=== PATIENT | male | born 1950 | race Caucasian/White ===

== ENCOUNTER 2019-07-10 09:14 | Observation (INO) | payer MEDICARE ==
[~2019-07-10] VITALS: Ht 175.3 cm; Wt 65.8 kg
[~2019-07-10 09:14] MED LIST: BP PILL; ETODOLAC400 MG PO; FLUID PILL; GABAPENTIN300 MG PO; LEVOTHYROXINE50 MCG PO; LISINOPRIL10 MG PO; MISOPROSTOL200 MCG PO; MONTELUKAST SOD10 MG PO; OMEPRAZOLE20 M1 PO; POTASSIUM99 M1 PO; PROAIR HFA INH8.5 GM INH; TRAMADOL
[2019-07-10] MEDS ORDERED: ALBUTEROL/IPRATROPIUM 3 ML NEB NEB ONE ×3 (09:45→13:30)
[2019-07-10 09:59] LABS: BASOPHILS % 0.4 % (0.0-1.0); EOSINOPHILS # (AUTO) 0.1 (0.0-0.4); EOSINOPHILS % 1.7 % (0.0-6.0); HEMATOCRIT 44.9 % (38.2-49.6); LYMPHOCYTES # (AUTO) 1.1 (1.0-3.2); LYMPHOCYTES % 15.2 % (18.0-39.1); MEAN CORPUSCULAR HEMOGLOBIN 33.1 pg (28-32); MEAN CORPUSCULAR HGB CONC 35.6 g/dL (31-35); MONOCYTES # (AUTO) 0.7 (0.2-0.8); MONOCYTES % 9.6 % (4.4-11.3); NEUTROPHILS # (AUTO) 5.2 (2.1-6.9); NEUTROPHILS % 72.8 % (38.7-80.0); PLATELET COUNT 200 x10e3/uL (140-360); RED BLOOD COUNT 4.83 x10e6/uL (4.3-5.7); RED CELL DISTRIBUTION WIDTH 12.5 % (11.7-14.4)
[2019-07-10] MEDS ORDERED: METHYLPREDNISOLONE SOD SUCC 125 MG/2ML VIAL IV NR (10:00)
[2019-07-10] MEDS ORDERED: CEFTRIAXONE SOD 1 GM/NS 50 ML 50 ML IV NR (10:00)
[2019-07-10] MEDS ORDERED: AZITHROMYCIN 500MG/NS 250 ML 250 ML IV ONE (10:00)
[2019-07-10] MEDS ORDERED: ASPIRIN 81 MG CHEW TAB PO ONE (10:00)
[2019-07-10] MEDS ORDERED: METHYLPREDNISOLONE SOD SUCC 125 MG/2ML VIAL ONE (10:08)
[2019-07-10 10:09] LABS: PROTHROMBIN TIME 13.8 seconds (11.9-14.5)
[2019-07-10 10:15] LABS: ANION GAP 18.6 mmol/L (8-16); BLOOD UREA NITROGEN 5 mg/dL (7-26); BUN/CREATININE RATIO 6 (6-25); CALCIUM 9.4 mg/dL (8.4-10.2); CARBON DIOXIDE 20 mmol/L (22-29); CHLORIDE 92 mmol/L (98-107); CREATINE KINASE 328 IU/L (30-200); CREATININE, SERUM 0.83 mg/dL (0.72-1.25); EST GLOMERULAR FILTRATION RATE > 60 ML/MIN (60-); GLUCOSE 109 mg/dL (74-118); POTASSIUM 4.6 mmol/L (3.5-5.1); SODIUM 126 mmol/L (136-145)
[2019-07-10 10:20] LABS: PARTIAL THROMBOPLASTIN TIME 30.6 seconds (23.8-35.5)
--- NOTE | 2019-07-10 11:35 | Diagnostic Imaging Report ---
EXAMINATION: CHEST SINGLE (PORTABLE) INDICATION: copd COMPARISON: None FINDINGS: TUBES and LINES: None. LUNGS: Emphysematous changes of the lungs. Mild bronchial wall thickening. Minimal patchy bibasilar opacities. PLEURA: Mild pleural thickening versus trace bilateral pleural effusions. No evidence of pneumothorax. HEART AND MEDIASTINUM: The cardiomediastinal silhouette is unremarkable. BONES AND SOFT TISSUES: No acute osseous abnormality. Healed right posterior sixth rib fracture. UPPER ABDOMEN: No free air under the diaphragm. IMPRESSION: Emphysematous lungs with findings of chronic bronchitis. Minimal patchy bibasilar opacities, likely atelectasis, although infectious process is possible in the appropriate clinical setting. Mild pleural thickening versus trace bilateral pleural effusions. Signed by: Dr. Mary Lou Ramirez MD on 07/10/2019 11:32 AM
--- NOTE | 2019-07-10 11:46 | Emergency Department Note ---
History of Present Illnes History of Present Illness Chief Complaint: Respiratory History of Present Illness This is a 68 year old male shortness of breath worsening since last night. hx of COPd sats of 94%. 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 Any updates have been documented here. Past Medical History Recent Fever: No Clinical Suspicion of Infectio: No New/Unexplained Change in Ment: No Past Medical History: Hypertension, COPD Other Medical History: GERD Back problems Herniasx2 Other Surgery: BACK FUSION X2, LEFT WRIST SURGERY Social History Smoking Cessation: Current every day smoker Counseling Performed: Yes Alcohol Use: Social Any Illegal Drug Use: No TB Exposure/Symptoms: No Physically hurt or threatened: No Family History Family history of heart diseas: No Other Last Tetanus: UTD Any Pre-Existing Lines (PICC,: No Is patient up to date on immun: Yes Review of Systems Review of Systems Constitutional: no symptoms EENTM: no symptoms Cardiovascular: no symptoms Respiratory: dyspnea, dyspnea on exertion Gastrointestinal: no symptoms Genitourinary: no symptoms Musculoskeletal: no symptoms Neurological: no symptoms Psychological: no symptoms Endocrine: no symptoms Hematological/Lymphatic: no symptoms Review of other systems All other systems reviewed and negative. Physical Exam Related Data Allergies: Coded Allergies: No Known Allergies (Unverified , 06/30/15) Triage Vital Signs Vital Signs Date Time Temp Pulse Resp B/P (MAP) Pulse Ox O2 Delivery O2 Flow Rate FiO2 07/10/19 09:24 98.4 128 28 179/99 94 07/10/19 09:49 4.0 Vital signs reviewed: Yes Physical Exam CONSTITUTIONAL Constitutional: well-developed, well-nourished HENT HENT: normocephalic, atraumatic, oropharynx clear/moist, nose normal HENT L/R: left ext ear normal, right ext ear normal EYES Eyes: PERRL, conjunctivae normal NECK Neck: ROM normal PULMONARY Pulmonary: respiratory distress (mild, with tachypnea), other (decreased BS's t hroughout with mod diffuse insp/exp wheezes) CARDIOVASCULAR Cardiovascular: regular rhythm, tachycardia GASTROINTESTINAL Abdominal: soft, nontender, bowel sounds normal GENITOURINARY Genitourinary: exam deferred SKIN Skin: warm, dry MUSCULOSKELETAL Musculoskeletal: ROM normal NEUROLOGICAL Neurological: alert, oriented x 3, no gross motor or sensory deficits PSYCHOLOGICAL Psychological: mood/affect normal, judgement normal Results Laboratory Result Diagram: 07/10/1941 07/10/1941 Laboratory Laboratory Tests Test 07/10/19 09:41 07/10/19 09:36 White Blood Count 7.16 x10e3/uL (4.8-10.8) Red Blood Count 4.83 x10e6/uL (4.3-5.7) Hemoglobin 16.0 g/dL (14.0-18.0) Hematocrit 44.9 % (38.2-49.6) Mean Corpuscular Volume 93.0 fL (81-99) Mean Corpuscular Hemoglobin 33.1 pg (28-32) Mean Corpuscular Hemoglobin Concent 35.6 g/dL (31-35) Red Cell Distribution Width 12.5 % (11.7-14.4) Platelet Count 200 x10e3/uL (140-360) Neutrophils (%) (Auto) 72.8 % (38.7-80.0) Lymphocytes (%) (Auto) 15.2 % (18.0-39.1) Monocytes (%) (Auto) 9.6 % (4.4-11.3) Eosinophils (%) (Auto) 1.7 % (0.0-6.0) Basophils (%) (Auto) 0.4 % (0.0-1.0) Neutrophils # (Auto) 5.2 (2.1-6.9) Lymphocytes # (Auto) 1.1 (1.0-3.2) Monocytes # (Auto) 0.7 (0.2-0.8) Eosinophils # (Auto) 0.1 (0.0-0.4) Basophils # (Auto) 0.0 (0.0-0.1) Absolute Immature Granulocyte (auto 0.02 x10e3/uL (0-0.1) Prothrombin Time 13.8 seconds (11.9-14.5) Prothromb Time International Ratio 1.00 Activated Partial Thromboplast Time 30.6 seconds (23.8-35.5) Sodium Level 126 mmol/L (136-145) Potassium Level 4.6 mmol/L (3.5-5.1) Chloride Level 92 mmol/L (98-107) Carbon Dioxide Level 20 mmol/L (22-29) Anion Gap 18.6 mmol/L (8-16) Blood Urea Nitrogen 5 mg/dL (7-26) Creatinine 0.83 mg/dL (0.72-1.25) Estimat Glomerular Filtration Rate > 60 ML/MIN (60-) BUN/Creatinine Ratio 6 (6-25) Glucose Level 109 mg/dL (74-118) Lactic Acid Level 1.5 mmol/L (0.5-2.0) Calcium Level 9.4 mg/dL (8.4-10.2) Creatine Kinase 328 IU/L (30-200) Creatine Kinase MB 21.20 ng/mL (0-5.0) Troponin I 0.022 ng/mL (0-0.300) B-Type Natriuretic Peptide 80.6 pg/mL (0-100) Lab results reviewed: Yes Imaging Imaging results reviewed: Yes Diagnostics Tests Diagnostic test(s) reviewed: Yes Procedures 12 Lead ECG 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 Assessment & Plan Reassessment Reassessment pt with h/o COPD presents SOB - check cbc, chem's, ecg, cardiac enzymes, cxr, blood cx's, lactate - r/o sepsis, pneumonia vs bronchitis, electrolyte abnl, STEMI/NSTEMI. Nebs, steroids, reassessment 1125- Pt improved, feels better, no resp distress currently. I discussed with him labs and need for admission. Spoke with Dr Yao for admission Assessment & Plan Final Impression: (1) CHRONIC OBSTRUCTIVE PULMONARY DISEASE W (ACUTE) EXACERBATION (2) ACUTE BRONCHITIS, UNSPECIFIED (3) HYPO-OSMOLALITY AND HYPONATREMIA Assessment & Plan admit Depart Disposition: ADMITTED Last Vital Signs Date Time Temp Pulse Resp B/P (MAP) Pulse Ox O2 Delivery O2 Flow Rate FiO2 07/10/19 10:10 121 20 100 07/10/19 09:49 4.0 07/10/19 09:24 98.4 179/99 Home Meds Reported Medications Albuterol Sulf* (PROAIR HFA INHALER*) 8.5 Gm Inh, 8.5 GM INH PRN 06/12/15 Montelukast Sodium (MONTELUKAST SODIUM) 10 Mg Tablet, 10 MG PO DAILY, #30 TAB 06/12/15 Omeprazole (OMEPRAZOLE) 20 Mg Tablet.dr, 20 MG PO DAILY 06/12/15 Levothyroxine Sodium (LEVOTHYROXINE SODIUM) 50 Mcg Tablet, 50 MCG PO DAILY, #30 TAB 06/12/15 Potassium Gluconate (POTASSIUM) 99 Mg Tablet, 99 MG PO DAILY 06/12/15 Etodolac (ETODOLAC) 400 Mg Tablet, 400 MG PO BID 06/12/15 Misoprostol (MISOPROSTOL) 200 Mcg Tablet, 200 MCG PO ACHS 06/12/15 Lisinopril (LISINOPRIL) 10 Mg Tablet, 20 MG PO DAILY, #30 TAB 06/12/15 Medications in the ED Aspirin 81 mg PRN ONCE PO ; Start 07/10/19 at 10:00; Stop 07/10/19 at 10:01; Status DC Ceftriaxone Sodium 50 ml @ 100 mls/hr ONCE IV ; Start 07/10/19 at 10:00; Stop 07/10/19 at 11:59 Azithromycin 250 ml @ 200 mls/hr NOW ONCE IV ; Start 07/10/19 at 10:00; Stop 07/10/19 at 11:14; Status DC Methylprednisolone Sodium Succinate 125 mg ONCE IV Last administered on 07/10/19at 10:12; Admin Dose 125 MG; Start 07/10/19 at 10:00; Stop 07/10/19 at 11:00; Status DC Albuterol/ Ipratropium 6 ml ONCE ONCE NEB Last administered on 07/10/19at 09:49; Admin Dose 6 ML; Start 07/10/19 at 09:45; Stop 07/10/19 at 09:46; Status DC Methylprednisolone Sodium Succinate 125 mg STK-MED ONCE .ROUTE ; Start 07/10/19 at 10:08; Stop 07/10/19 at 10:03; Status DC NUSRAT PATEL MD July 10, 2019 11:46
[2019-07-10] MEDS ORDERED: SODIUM CHLORIDE 0.9% 1000ML 1,000 ML IV SCH (12:00)
[2019-07-10] MEDS ORDERED: ALBUTEROL SULF 0.083% NEB SOLN 3 ML NEB NEB SCH (12:00)
--- NOTE | 2019-07-10 12:21 | NUR ---
COVID 19 swab performed
--- OUTSIDE RECORDS SUMMARY | 2019-07-10 12:24 | XMS REPORT ---
Author Author [facility] Organization [facility] Address [address] [place] [id number] Phone Unavailable Care Team Providers Care Hide Inspector Name Role Phone Kim PATEL Attphys Unavailable Problems This patient has no known problems. Allergies, Adverse Reactions, Alerts This patient has no known allergies or adverse reactions. Medications This patient has no known medications. Procedures This patient has no known procedures. Results Test Description Test Time Test Comments Results Result Comments Source CHEST SINGLE (PORTABLE) 2019-07-10 11:27:00 [place] [address] Patient Name: JOE THORNE V MR #: [id number] : 1950 Age/Sex: 68/M Req #: [id number] Adm Physician: Ordered by: NUSRAT PATEL MD Report #: [id number] Location: ER Room/Bed: Procedure: [id number] DX/CHEST SINGLE (PORTABLE) Exam Date: 07/10/19 Exam Time: 1050 REPORT STATUS: Signed EXAMINATION: CHEST SINGLE (PORTABLE) INDICATION: copd COMPARISON: None FINDINGS: TUBES and LINES: None. LUNGS: Emphysematous changes of the lungs. Mild bronchial wall thickening. Minimal patchy bibasilar opacities. PLEURA: Mild pleural thickening versus trace bilateral pleural effusions. No evidence of pneumothorax. HEART AND MEDIASTINUM: The cardiomediastinal silhouette is unremarkable. BONES AND SOFT TISSUES: No acute osseous abnormality. Healed right posterior sixth rib fracture. UPPER ABDOMEN: No free air under the diaphragm. IMPRESSION: Emphysematous lungs with findings of chronic bronchitis. Minimal patchy bibasilar opacities, likely atelectasis, although infectious process is possible in the appropriate clinical setting. Mild pleural thickening versus trace bilateral pleural effusions. Signed by: Dr. Sidney Ye MD on 07/10/2019 11:32 AM Dictated By: SIDNEY YE MD 113 Transcribed By: CHARLES on 07/10/19 113 COPY TO: NUSRAT PATEL MD
[2019-07-10] MEDS ORDERED: TRAMADOL HCL 50 MG TAB PO PRN (12:30)
--- NOTE | 2019-07-10 12:30 | NUR ---
Informed patient that he was going to be admitted into the hospital, patient states that he does not want to be admitted and would rather go home. ER MD aware and stated that he would speak with the patient regarding his concerns.
--- NOTE | 2019-07-10 12:35 | NUR ---
Patient accidently removed his IV. Will replace IV.
[2019-07-10] MEDS ORDERED: IPRATROPIUM BROMIDE 0.02% 2.5 ML NEB NEB SCH (13:00)
[2019-07-10] MEDS ORDERED: DEXAMETHASONE SOD PHOS INJ 4 MG/ML VIAL NEB ONE (13:00)
--- NOTE | 2019-07-10 13:00 | NUR ---
Went to replace patient IV and he stated that he would like to go home. Patient refused new IV start and additional medication that was ordered. ER MD to be notified.
[2019-07-10] MEDS ORDERED: DEXAMETHASONE SOD PHOS 10 MG/1 ML VIAL ONE (13:11)
[2019-07-10 13:12] LABS: CLARITY,URINE CLEAR (CLEAR); COLOR,URINE YELLOW (YELLOW); KETONES,URINE 1+ (NEGATIVE); LEUKOCYTE ESTERASE ,URINE NEGATIVE (NEGATIVE); NITRITE,URINE NEGATIVE (NEGATIVE); PROTEIN,URINE DIPSTICK NEGATIVE (NEGATIVE)
[2019-07-10 13:13] LABS: BILIRUBIN,URINE NEGATIVE (NEGATIVE); URINE UROBILINOGEN 0.2 mg/dL (0.2 - 1)
--- NOTE | 2019-07-10 13:20 | NUR ---
AMA formed completed and signed by patient. Patient is still instisting that he would like to go home and not admitted in the hospital. ER MD aware.
[2019-07-10 13:31] LABS: BACTERIA,URINE FEW /HPF; EPITHELIAL CELLS,URINE FEW /LPF; RBC,URINE 0-5 /HPF (0-5); WBC,URINE (MAN) 0-5 /HPF (0-5)
[2019-07-10] MEDS ORDERED: METHYLPREDNISOLONE SOD SUCC 125 MG/2ML VIAL IV SCH (14:00)
--- NOTE | 2019-07-10 14:03 | NUR ---
Dr. Yao admit MD aware that patient does not want to be admitted to the hospital. Patient to leave AMA.
[2019-07-10 14:11] VITALS: BP 160/77
[2019-07-10] MEDS ORDERED: ALBUTEROL SULF 0.083% NEB SOLN 3 ML NEB ONE (15:20)
[2019-07-11] MEDS ORDERED: CEFTRIAXONE SOD 1 GM/NS 50 ML 50 ML IV SCH (10:00)
[2019-07-11] MEDS ORDERED: AZITHROMYCIN 500MG/SOD CHL 0.9% 250ML BAG IV SCH (10:00)
[2019-07-11] MEDS ORDERED: CEFTRIAXONE SOD 1 GRAM/0.9% SOD CHL 50ML BAG IV SCH (10:00)
== END 2019-07-10 14:20 | disposition left against medical advice (07) ==
LOC: ER 09:23 → ERHOLD 11:55
PROVIDERS: ADMIT Internal Medicine; ATTEND Internal Medicine
DX: J44.0 Chronic obstructive pulmonary disease with (acute) lower respiratory infection (principal); I10 Essential (primary) hypertension; J44.9 Chronic obstructive pulmonary disease, unspecified; K21.9 Gastro-esophageal reflux disease without esophagitis; J20.9 Acute bronchitis, unspecified; J44.1 Chronic obstructive pulmonary disease with (acute) exacerbation; E87.1 Hypo-osmolality and hyponatremia
CPT/HCPCS: 36415; 71045; 80048; 81001; 82550; 82553; 83605; 83880; 84484; 85025; 85610; 85730; 87040; 87086; 93005; 94640 ×2; 99284; G0378; J0456; J0696; J1100; J2930; J7030